=== PATIENT | female | born 1930 | race Caucasian/White ===

== ENCOUNTER 2016-05-04 12:50 | Emergency (ER) | payer MEDICARE ==
[2016-05-04] VITALS (7 sets, daily range): BP systolic 101–129; BP diastolic 29–57; PULSE 69–85; RESP 12–22; O2SAT 99–100
[~2016-05-04] VITALS: Ht 165.1 cm; Wt 70.0 kg
[~2016-05-04 12:50] MED LIST: ACET-171 PO; ASPI-973 PO; ATEN50TA PO; HYDR-4003 PO; HYOS0.1216 SL; LOSA100T29 PO; OMEP20CA11 PO; PROP300T PO; SIMV20TA4 PO; WARF2.5T82 PO
--- NOTE | 2016-05-04 14:00 | ED.REPORT ---
HPI-Abd Pain F 40 and Over Date of Service May 04, 2016 ED Provider: Jonelle Coleman History of Present Illness: 86-year-old female here for nausea and vomiting 1 week. She is also severely dizzy with changing positions almost to the point of passing out. She went to an urgent care yesterday had blood work done for the same complait and a hip and thigh x-ray for left leg pain x 2-3 days but no results yet. Leg Pain only when moving or walking, no pain when sitting. NO hip or back pain. THe pain is occasionally on her R leg as well. She took zofran for nausea but not helping much. She had a fever on day 1 of her illness but not since then. She is not able to keep much liquids or food down. She is on warfarin for A. fib. Last checked INR 2 weeks ago, slightly elevated but no dose adjustments. No recent trauma. she did take all her meds today. She noted her blood pressure this morning was 90 systolic. Denies chest pain, shortness of breath, visual symptoms. She did have one day of diarrhea. Denies blood in her stool or emesis. Denies abd pain. Denies flank pain or dysuria. Nursing Notes Stated Complaint: NAUSEA,DIZZY Chief Complaint: General Complaint Allergies: Coded Allergies: No Known Allergies (Unverified , 05/04/16) Scheduled Aspirin (Aspirin) 81 Mg Tablet 81 MG PO DAILY Atenolol (Atenolol) 50 Mg Tablet 50 MG PO DAILY Cephalexin (Keflex) 500 Mg Capsule 500 MG PO TID Losartan Potassium (Losartan Potassium) 100 Mg Tablet 50 MG PO DAILY Omeprazole (Omeprazole) 20 Mg Capsule.dr 20 MG PO DAILY Propafenone (Propafenone) 300 Mg Tablet 300 MG PO Q8 Simvastatin (Simvastatin) 20 Mg Tablet 20 MG PO HS Warfarin Sodium (Warfarin Sodium) 2.5 Mg Tablet 2.5 MG PO DAILY Scheduled PRN Acetaminophen (Acetaminophen) 500 Mg Tablet 1,000 MG PO Q6H PRN PRN pain headache Hydrocodone-Acetaminophen 5-325 mg (Hydrocodone-Acetaminophen 5-325 mg) 1 Each Tablet 1 EACH PO Q4 PRN PRN For Pain Hyoscyamine (Hyoscyamine) 0.125 Mg Tablet 0.125 MG SL q4h PRN PRN swallowing General Time Seen by MD: 13:59 Chief Complaint Diarrhea mild, Nausea, Vomiting moderate, Other (dizziness ) dizzy with position changes. Hx Obtained From: Patient Arrived By: Walk-in Sudden in Onset?: Yes Onset Occurred: 1 week ago Symptom Duration: Waxes and wanes Pertinent Negative: Pt denies other symptoms Recent Healthcare: Recent doctor visit Similar Sx Previous: Yes Risk Factors Risk Notes: hx laryngeal ca, has baseline trouble swallowing Past Medical History Past Medical History Reports: Cancer, Coronary artery disease, GERD, Hypertension Reports: Atrial fibrillation Past Surgical History Reports: Hysterectomy, Tonsillectomy Reports: Pacemaker insertion Smoking History Never Smoker Social History Alcohol Use: "Social" Drug Use: Denies drug use Review of Systems Basic Review of Systems Eyes: Vision NL ENT: Hearing NL Hematologic: No bleeding Neurologic: NL mental status Psychiatric: Normal thought content Constitutional: Reports: Fatigue, Malaise Respiratory: Denies: Dyspnea on exertion, Hemoptysis Cardiovascular: Denies: Chest pain, Dyspnea on exertion, Edema GI: Reports: Diarrhea, Nausea, Vomiting, Denies: Abdominal pain, Melena Female: Denies: Dysuria Musculoskeletal: Denies: Back pain Complete sys rev & neg: except as marked. Physical Exam Vital Signs Vital Signs (First) Date Time Temp Pulse Resp B/P Pulse Ox O2 Delivery O2 Flow Rate FiO2 05/04/16 12:56 36.7 69 16 124/57 99 Room Air Initial VS: Reviewed Head / Eyes: Atraumatic, Normocephalic, PERRL ENT: Mucous membranes moist, No scleral icterus Neck: Supple, Non-tender, Full range of motion Lymphatic: No lymphadenopathy Extremities: Vascular intact, Neuro intact, No swelling, No tenderness Skin: Warm, Dry, No cyanosis Neurologic: Alert, Oriented, Nonfocal Psychiatric: Mood/affect normal, Behavior normal, Normal thought content Respiratory / Chest: Atraumatic, Breath sounds NL, Breath sounds = bilat, No respiratory distress Chest Wall / Ribs: Positive: Implanted cardiac device Cardiovascular: Heart rate NL Heart Rate / Rhythm: Positive: Irreg irregular rhythm afib, chronic Abdomen: Atraumatic, Soft Tenderness/Guarding/Rebound: Positive: Tender RLQ... (Mild), Negative: Tender flank L, Tender flank R guiac neg Interpretation & Diagnostics Lab Results Interpretation Result Diagram: 05/04/16 1435 05/04/16 1435 Test 05/04/16 14:35 05/04/16 17:04 White Blood Count 9.0th/mm3 (3.8-10.1) Red Blood Count 3.30mil/mm3 (3.90-5.20) Hemoglobin 10.0g/dL (12.0-15.6) Hematocrit 30.2% (35.0-46.0) Mean Corpuscular Volume 91.5fL (81-100) Mean Corpuscular Hemoglobin 30.3pg (27.0-35.0) Mean Corpuscular Hemoglobin Concent 33.1% (32.0-37.0) Red Cell Distribution Width 13.5% (12.3-15.4) Platelet Count 191bil/L (150-400) Neutrophils (%) (Auto) 67.9% (40-74) Lymphocytes (%) (Auto) 19.4% (14-46) Monocytes (%) (Auto) 9.9% (4-12) Eosinophils (%) (Auto) 1.9% (0-5) Basophils (%) (Auto) 0.3% (0-3) Prothrombin Time 71.7sec (8.1-12.5) Prothromb Time International Ratio 6.45ratio Sodium Level 135mEq/L (134-144) Potassium Level 4.8mEq/L (3.5-5.2) Chloride Level 98mEq/L (97-108) Carbon Dioxide Level 24mmol/L (18-29) Blood Urea Nitrogen 29mg/dL (8-27) Creatinine 1.33mg/dL (0.57-1.00) Estimat Glomerular Filtration Rate 54mL/min (>59) Glucose Level 109mg/dL (60-99) Lactic Acid Level 1.2mmol/L (0.4-2.0) Calcium Level 8.0mg/dL (8.5-10.1) Magnesium Level 2.0mg/dL (1.6-2.6) Total Bilirubin 0.5mg/dL (0.0-1.2) Aspartate Amino Transf (AST/SGOT) 12U/L (0-50) Alanine Aminotransferase (ALT/SGPT) 13U/L (0-32) Alkaline Phosphatase 48U/L (25-165) Total Protein 6.0g/dL (6.4-8.4) Albumin 3.8g/dL (3.4-5.0) Lipase 37U/L (13-60) Hold Phan Top Tube Received (Received) Urine Color Yellow (YELLOW) Urine Appearance Cloudy (CLEAR,HAZY) Urine pH 6.0 (5.0-8.0) Urine Specific [place] 1.010 (1.003-1.035) Urine Protein Negativemg/dL (NEG,TRACE) Urine Glucose (UA) Negativemg/dL (NEGATIVE) Urine Ketones Negativemg/dL (NEGATIVE) Urine Occult Blood Trace (NEGATIVE) Urine Nitrite Positive (NEGATIVE) Urine Bilirubin Negative (NEGATIVE) Urine Urobilinogen Normalmg/dL (NORMAL) Urine Leukocyte Esterase Large (NEGATIVE) Urine RBC 0-2/hpf (0-2) Urine WBC >50/hpf (0-5) Urine Epithelial Cells Many/hpf (NONE-MOD) Urine Crystals None seen (NONE SEEN) Urine Bacteria Moderate/hpf (NONE-FEW) Urine Hyaline Casts None/lpf (NONE) Urine Granular Casts None seen (NONE SEEN) Urine Waxy Casts None seen (NONE SEEN) Urine Red Blood Cell Casts None seen (NONE SEEN) Urine White Blood Cell Casts None seen (NONE SEEN) Urine Mucus None seen (None Seen) Urine Trichomonas None seen (NONE SEEN) Urine Yeast None (NONE SEEN) Urinalysis Comment None Urine Culture Reflexed Indicated Re-Eval/Medical Decision Med Decision/Clinical Course 1529- discussed case with Dr. najera. We will aggressively rehydrate, no evidence of GI bleed, see if we can get symptoms under control. Rechecked on patient she is resting comfortably in bed slightly hypotensive at 95/45. Patient improved after second liter of fluid, still slightly dizzy with walking. BP improved. will give third liter of normal saline After third liter of normal saline patient is much improved no longer orthostatic and is asymptomatic. Her lung sounds were clear. i Gave her a gram or Rocephin. Dr. Najera assessed patient as well and agrees with discharge. She will follow up with her GI for scope. And follow-up with her PCP in the next 1-2 days Discharge & Departure Shift Change Sign-Out Patient Care Transferred: No Discussed Complaint(s): Yes Laboratory Evaluation: Lab evaluation discussed Imaging Studies: Imaging discussed Response to Therapy: Improved Primary Impression: UTI (urinary tract infection) Urinary tract infection type: acute cystitis Hematuria presence: with hematuria Qualified Code: N30.01 - Acute cystitis with hematuria Additional Impressions: Afib Atrial fibrillation type: chronic Qualified Code: I48.2 - Chronic atrial fibrillation Nausea & vomiting Vomiting type: unspecified Vomiting Intractability: non-intractable Qualified Code: R11.2 - Nausea with vomiting, unspecified Elevated INR Disposition: Home Discharge Condition All VS Reviewed: Yes Condition: Stable Patient Instructions: Acute Nausea and Vomiting (ED), Urinary Tract Infection in Women (ED) Additional Instructions: Take your antibiotics as prescribed starting tomorrow. Use nausea medicine that you have as needed. Drink lots of fluids, and small frequent sips. Return immediately if you not able to keep fluids or your medications down, fevers, or dizziness returns, you get short of breath or chest pain, or worsening in condition at all. Follow-up with your PCP in the next 1-2 days. Do not take your warfarin for the next 2 days and see your PCP to get your INR rechecked at that time. Referrals: Mc Morin MD (PCP) EDSupervising Provider for APC: Tariq Najera DO copies to: Tariq Najera DO; Mc Morin MD, Linnea K ARNP May 04, 2016 14:00
[2016-05-04] MEDS ORDERED: Ondansetron 2 mg/mL 2 mL Inj IVPUSH ONE (14:10)
[2016-05-04] MEDS ORDERED: 0.9% Sodium Chloride 1,000 ML IV ONE ×3 (14:10→16:25)
[2016-05-04 14:47] LABS: BASOPHILS % (AUTO) 0.3 % (0-3); EOSINOPHILS % (AUTO) 1.9 % (0-5); MONOCYTES % (AUTO) 9.9 % (4-12); Mean Corpuscular Hemoglobin 30.3 pg (27.0-35.0); Mean Corpuscular Volume 91.5 fL (81-100); NEUTROPHILS % (AUTO) 67.9 % (40-74); Platelet Count 191 bil/L (150-400)
--- NOTE | 2016-05-04 15:15 | DRSVH ---
PROCEDURE: X-RAY CHEST ONE VIEW ([id number]) INDICATIONS: 86 year-old female with dizziness. TECHNIQUE: One view of the chest was acquired. COMPARISON: [facility], CR, XR CHEST 1VW (PORTABLE), 03/24/2015, 16:30. [facility], CR, XR CHEST 2VW, 11/10/2014, 16:03. [facility], CR, XR CHEST 2VW, 11/04/2014, 8 :10. FINDINGS: Surgical changes and devices: Left chest wall dual chamber pacemaker is again noted. Lungs and pleura: No pleural effusions or pneumothorax. Lungs are clear. Mediastinum: Mediastinal contours appear normal. Heart size is normal. There is aortic atheroscler osis. Bones and chest wall: No suspicious bony lesions. Overlying soft tissues appear unremarkable. IMPRESSION: No acute cardiopulmonary disease. Dictated by: Suman Dean M.D. on 05/04/2016 at 15:13 Approved by: Suman Dean M.D. on 05/04/2016 at 15:14
[2016-05-04 15:19] LABS: INR 6.45 ratio
[2016-05-04 17:20] LABS: APPEARANCE,URINE CLOUDY (CLEAR,HAZY); COLOR,URINE YELLOW (YELLOW); OCCULT BLOOD,URINE TRACE (NEGATIVE); UROBILINOGEN,URINE NORMAL (NORMAL)
[2016-05-04] MEDS ORDERED: cefTRIAXone Inj 1,000 MG in Dextrose 5% Minibag Plus 50 ML IV ONE (17:40)
[2016-05-04] MEDS ORDERED: CEPH-512 PO (17:47)
== END 2016-05-04 18:33 | disposition home or self-care (01) ==
LOC: SED 12:50
DX: N30.01 Acute cystitis with hematuria (principal); I48.2 Chronic atrial fibrillation; R11.2 Nausea with vomiting, unspecified; R79.1 Abnormal coagulation profile; B96.20 Unspecified Escherichia coli [E. coli] as the cause of diseases classified elsewhere; M79.605 Pain in left leg; I25.10 Atherosclerotic heart disease of native coronary artery without angina pectoris; K21.9 Gastro-esophageal reflux disease without esophagitis; I10 Essential (primary) hypertension; Z95.0 Presence of cardiac pacemaker; Z85.21 Personal history of malignant neoplasm of larynx; Z79.01 Long term (current) use of anticoagulants; Z79.82 Long term (current) use of aspirin
CPT/HCPCS: 36415; 71010; 80053; 81000; 83605; 83690; 83735; 85025; 85610; 87086; 87088; 87186; 93005; 96361; 96365; 96375; 99285; J0696; J2405; J7030

== ENCOUNTER 2016-05-06 12:44 | Observation (INO) | payer MEDICARE ==
[~2016-05-06] VITALS: Ht 165.1 cm; Wt 71.8 kg
[~2016-05-06 12:44] MED LIST changes: +CEPH-512 PO
[2016-05-06 12:54] VITALS: BP 143/57; PULSE 70; RESP 16; O2SAT 97
[2016-05-06] MEDS ORDERED: 0.9% Sodium Chloride 1,000 ML IV ONE (13:04)
--- NOTE | 2016-05-06 13:04 | ED.REPORT ---
HPI-General Illness Date of Service May 06, 2016 ED Provider: Antonio Gomez MD The patient is an 86 year old female with history of atrial fibrillation, coronary artery disease, hypertension, and GERD, who was sent to the emergency department by her primary care provider. She was seen by her doctor on Thursday, urgent care on Thursday, and the emergency department on Thursday. She came to the emergency department for nausea and vomiting. Since yesterday she has noticed bruising to her left lower extremity. She denies any known injuries or trauma. Her INR was elevated on Thursday and she has subsequently not taken her Warfarin for 3 days. At this time she also feels generally weak, dizzy, tired, and short of breath. She denies chest pain, fever, chills, headache, numbness, tingling, weakness, abdominal pain, hematemesis, bloody stool or melena. Nursing Notes Stated Complaint: ANEMIA Chief Complaint: General Complaint Nursing Notes Reviewed: Yes Allergies: Coded Allergies: No Known Allergies (Unverified , 05/04/16) Scheduled Aspirin (Aspirin) 81 Mg Tablet 81 MG PO DAILY Atenolol (Atenolol) 50 Mg Tablet 50 MG PO DAILY Cephalexin (Keflex) 500 Mg Capsule 500 MG PO TID Losartan Potassium (Losartan Potassium) 100 Mg Tablet 50 MG PO DAILY Omeprazole (Omeprazole) 20 Mg Capsule.dr 20 MG PO DAILY Propafenone (Propafenone) 300 Mg Tablet 300 MG PO Q8 Simvastatin (Simvastatin) 20 Mg Tablet 20 MG PO HS Warfarin Sodium (Warfarin Sodium) 2.5 Mg Tablet 2.5 MG PO DAILY Scheduled PRN Acetaminophen (Acetaminophen) 500 Mg Tablet 1,000 MG PO Q6H PRN PRN pain headache Hydrocodone-Acetaminophen 5-325 mg (Hydrocodone-Acetaminophen 5-325 mg) 1 Each Tablet 1 EACH PO Q4 PRN PRN For Pain Hyoscyamine (Hyoscyamine) 0.125 Mg Tablet 0.125 MG SL q4h PRN PRN swallowing General Time Seen by : 13:03 Chief Complaint Other (LLE bruising) Hx Obtained From: Patient, Primary care provider Arrived By: Wheelchair Sudden in Onset?: Yes Onset Occurred: Yesterday Symptom Duration: Since onset Location: : Leg left Quality: Painful Severity: Current: Mild Severity: Maximum: Mild Recent Healthcare: No recent hospitalization, Recent doctor visit Similar Sx Previous: No Past Medical History Past Medical History Reports: Cancer, Coronary artery disease, GERD, Hypertension Reports: Atrial fibrillation Past Surgical History Reports: Hysterectomy, Tonsillectomy Reports: Pacemaker insertion Family History Noncontributory Smoking History Never Smoker Social History Alcohol Use: "Social" Drug Use: Denies drug use Other Social History: Good social support Ambulatory Status Independent Review of Systems Full Review of Systems Constitutional: Reports: Fatigue, Weakness - generalized Respiratory: Reports: Dyspnea on exertion, Shortness of breath Cardiovascular: Denies: Chest pain GI: Denies: Abdominal pain, Bloody/tarry stool, Hematemesis, Hematochezia, Melena Musculoskeletal: Reports: Extremity pain Hematologic: Reports Bruising Neurologic: Reports: Lightheaded, Weakness, Denies: Focal weakness, Headache, Numbness, Problem walking Complete sys rev & neg: except as marked. Physical Exam Vital Signs Vital Signs Date Time Temp Pulse Resp B/P Pulse Ox O2 Delivery O2 Flow Rate FiO2 05/06/16 15:25 36.7 73 17 143/43 100 Room Air 05/06/16 12:54 36.4 70 16 143/57 97 Room Air Initial VS: Reviewed Head / Eyes: Atraumatic, Normocephalic, PERRL ENT: Mucous membranes moist, Conjunctiva normal, No scleral icterus Neck: Supple, Non-tender, Full range of motion Respiratory: Breath sounds normal, Clear to auscultation, No respiratory distress Cardiovascular: Regular rate & rhythm, Heart sounds normal, Intact distal pulses Abdomen / GI: Soft, Non-tender, No guarding, No rebound, No distention Lymphatic: No lymphadenopathy Neurologic: Alert, Oriented, Nonfocal Psychiatric: Mood/affect normal, Behavior normal, Normal thought content General/Constitutional: Awake, Alert, Well appearing Lower Extremity / Pelvis / MS: Neurologic intact, Vascular intact Ecchymosis of the medial aspect of her left leg extending from her groin distally to just below the knee. Neurovascularly intact. No evidence of compartment syndrome. Interpretation & Diagnostics Lab Results Interpretation Result Diagram: 05/06/16 1330 05/06/16 1330 Test 05/06/16 13:30 05/06/16 14:23 White Blood Count 7.9th/mm3 (3.8-10.1) Red Blood Count 2.93mil/mm3 (3.90-5.20) Hemoglobin 8.8g/dL (12.0-15.6) Hematocrit 27.3% (35.0-46.0) Mean Corpuscular Volume 93.2fL (81-100) Mean Corpuscular Hemoglobin 30.0pg (27.0-35.0) Mean Corpuscular Hemoglobin Concent 32.2% (32.0-37.0) Red Cell Distribution Width 13.7% (12.3-15.4) Platelet Count 199bil/L (150-400) Neutrophils (%) (Auto) 65.5% (40-74) Lymphocytes (%) (Auto) 20.3% (14-46) Monocytes (%) (Auto) 10.8% (4-12) Eosinophils (%) (Auto) 2.3% (0-5) Basophils (%) (Auto) 0.3% (0-3) Prothrombin Time 30.7sec (8.1-12.5) Prothromb Time International Ratio 2.81ratio Sodium Level 137mEq/L (134-144) Potassium Level 4.5mEq/L (3.5-5.2) Chloride Level 105mEq/L (97-108) Carbon Dioxide Level 21mmol/L (18-29) Blood Urea Nitrogen 17mg/dL (8-27) Creatinine 0.87mg/dL (0.57-1.00) Estimat Glomerular Filtration Rate 88mL/min (>59) Glucose Level 106mg/dL (60-99) Calcium Level 7.1mg/dL (8.5-10.1) Magnesium Level 1.9mg/dL (1.6-2.6) Total Bilirubin 0.7mg/dL (0.0-1.2) Aspartate Amino Transf (AST/SGOT) 16U/L (0-50) Alanine Aminotransferase (ALT/SGPT) 13U/L (0-32) Alkaline Phosphatase 44U/L (25-165) Total Protein 5.5g/dL (6.4-8.4) Albumin 3.3g/dL (3.4-5.0) Hold Phan Top Tube Received (Received) Hold Urine Received (Received) ECG Interpretation ECG Interpretation: Atrial paced rhythm at 70 bpm Normal axis No ST segment changes Diffuse T wave flattening and inversions No prior EKG available for comparison Time: 13:30 Interpreted by: ED physician Re-Eval/Medical Decision Med Decision/Clinical Course In summary, the patient is an 86-year-old female recently seen in the emergency department 3 days ago for complaints of nausea and vomiting which time she was found to have a supratherapeutic INR >6, she is subsequently been holding her Coumadin though he has noticed increasing generalized fatigue and over the last 48 hours has had significant ecchymosis of her left lower extremity. She was seen by her primary care physician Dr. Najera earlier today and sent to the emergency department for further evaluation due to concern for significant ongoing blood loss. She has had no trauma of her left leg. The emergency department she is afebrile stable vital signs. Examination of her left lower extremity reveals significant ecchymosis with moderate swelling though there is no evidence of compartment syndrome. She has had no signs or symptoms of GI bleeding or other potential sources of blood loss. IV access was obtained and IV fluids were administered. LABS: no leukocytosis, hct 27.3 down from 30.2 two days ago and sig decreased from reg baseline in the 40s, CMP unremarkable except mild hypocalcemia, INR 2.18 down from 6.45 2 days ago At this time, the patient's INR has dropped to therapeutic range. She continues to have decreasing hematocrit and I suspect that at least some of her blood loss is been due to the hematoma formation in her leg. I see no evidence of arterial bleeding or compartment syndrome. I do not feel that imaging studies of her leg will be of much benefit at this time and I suspect that this is slow venous bleeding related to her supratherapeutic INR. He said she is quite anemic and has dropped her blood counts substantially. I feel that she warrants admission for serial hematocrit, ongoing monitoring of her left lower extremity and blood transfusion if needed. Patient was discussed with admitting hospitalist and transferred for further management. Source of Hx: Old records Time of Eval: 14:05 Re-Evaluation/Progress Note: Rechecked the patient. Discussed results, diagnosis, and plan for admission. All questions were addressed. Consultation : Referral / Consult Name: Manju Galindo MD Consulted With: Hospitalist Requested Call at: 14:15 Call Returned at: 14:32 Fur Tinter: Will see patient, Agrees with eval, Agrees with plan, Accepts admit Counseled Regarding: Diagnosis, Lab results, Need for admission Discharge & Departure Primary Impression: Ecchymosis Additional Impressions: Blood loss anemia Supratherapeutic INR Anticoagulated on Coumadin Fatigue Fatigue type: unspecified Qualified Code: R53.83 - Other fatigue Generalized weakness Disposition: ADMITTED TO HOSPITAL Discharge Condition All VS Reviewed: Yes Condition: Stable Referrals: Mc Morin MD (PCP) [facility] Attestation Portions of this note were transcribed by Ember Ibanez. I, Dr. Gomez personally performed the history, physical exam and medical decision-making; I reviewed and confirmed the accuracy of the information in the transcribed note. Signed by: Nahun Tinsley, 05/06/2016 and 1500. copies to: Mc Morin MD, Beck O MD May 06, 2016 13:04 Ember Ibanez May 06, 2016 14:08
[2016-05-06 13:49] LABS: BASOPHILS % (AUTO) 0.3 % (0-3); EOSINOPHILS % (AUTO) 2.3 % (0-5); MONOCYTES % (AUTO) 10.8 % (4-12); Mean Corpuscular Volume 93.2 fL (81-100); NEUTROPHILS % (AUTO) 65.5 % (40-74); Platelet Count 199 bil/L (150-400)
[2016-05-06 13:59] LABS: INR 2.81 ratio
[2016-05-06 14:06] LABS: Magnesium 1.9 mg/dL (1.6-2.6)
[2016-05-06] MEDS ORDERED: Alum-Mag Hydrox-Simeth 30 mL Suspension PO PRN (14:15)
[2016-05-06] MEDS ORDERED: Ondansetron 2 mg/mL 2 mL Inj IVPUSH PRN ×2 (14:15→15:15)
[2016-05-06] MEDS ORDERED: Polyethylene Glycol (PEG) 17 Gm Powder PO PRN (15:15)
[2016-05-06 15:25] VITALS: BP 143/43; PULSE 73; RESP 17; O2SAT 100
[2016-05-06] MEDS: Sodium Chloride LOK Flush 10 mL Syringe IVFLUSH SCH (16:30)
[2016-05-06 16:55] VITALS: BP 103/42; PULSE 76; RESP 12; O2SAT 98
--- NOTE | 2016-05-06 16:57 | PCM.HPMED ---
Subjective Date of Service May 06, 2016 Primary Provider: Admitting Physician: Manju Galindo MD Primary Care Physician: Mc Morin MD Attending Physician: Manju Galindo MD Admit Status: From the Emergency Department, 23-Hour Observation Chief Complaint: Large contusion on left inner thigh History of Present Illness: This is an 86-year-old female who presented to the emergency room with increased contusion on her left side. She notes that recently she had an INR of 7.0 and today in the emergency room her INR is 2.4. She is on Coumadin for atrial fibrillation chronic.per ER doctor originally hematocrit was 40 and is now down to 30. Denies any alteration in bowel movements denies any nausea or vomiting. She does not recall having any injury to her leg. However she does note about 2 weeks ago she did have an injection into her left knee. She notes the contusion about a day ago. She denies any fevers or chills. She does admit to some lightheadedness. But does admit to feeling generally weak. She denies any chest pain. Review of Systems: All other review of systems are reviewed and are negative except for as in history of present illness Allergies Coded Allergies: No Known Allergies (Unverified , 05/04/16) Home Medications Scheduled Aspirin (Aspirin) 81 Mg Tablet 81 MG PO DAILY Atenolol (Atenolol) 50 Mg Tablet 50 MG PO DAILY Cephalexin (Keflex) 500 Mg Capsule 500 MG PO TID Losartan Potassium (Losartan Potassium) 100 Mg Tablet 50 MG PO DAILY Omeprazole (Omeprazole) 20 Mg Capsule.dr 20 MG PO DAILY Propafenone (Propafenone) 300 Mg Tablet 300 MG PO Q8 Simvastatin (Simvastatin) 20 Mg Tablet 20 MG PO HS Warfarin Sodium (Warfarin Sodium) 2.5 Mg Tablet 2.5 MG PO DAILY Scheduled PRN Acetaminophen (Acetaminophen) 500 Mg Tablet 1,000 MG PO Q6H PRN PRN pain headache Hydrocodone-Acetaminophen 5-325 mg (Hydrocodone-Acetaminophen 5-325 mg) 1 Each Tablet 1 EACH PO Q4 PRN PRN For Pain Hyoscyamine (Hyoscyamine) 0.125 Mg Tablet 0.125 MG SL q4h PRN PRN swallowing PMH Past Medical History Reports: Cancer, Coronary artery disease, GERD, Hypertension Reports: Atrial fibrillation Past Surgical History Reports: Hysterectomy, Tonsillectomy Reports: Pacemaker insertion Family History Denies any history of coagulopathies. Social History Hx Alcohol Use: Yes ("very rarely") Hx Substance Use: No Hx Tobacco Use: No Smoking Status: Never Smoker Living Arrangement: Alone Exam Vital Signs Vital Sign - Last Date Time Temp Pulse Resp B/P Pulse Ox O2 Delivery O2 Flow Rate FiO2 05/06/16 15:25 36.7 73 17 143/43 100 Room Air Exam Constitutional: Elderly woman in no acute distress Head: Normocephalic atraumatic Neck: No adenopathy Chest: Clear to auscultation Cor: Irregular regular rate and rhythm S1-S2 abdomen: Soft nontender bowel sounds present Extremities: Large inner aspect left thigh contusion hematoma noted. No pedal edema noted bilaterally Skin: As above otherwise no rashes Psych: Mood and affect are appropriate Neuro: Alert and oriented 3 motor and sensory are intact bilaterally Lab and Diagnostics Labs Laboratory Tests 72 Hours Test 05/06/16 13:30 05/06/16 14:23 White Blood Count 7.9th/mm3 (3.8-10.1) Red Blood Count 2.93mil/mm3 (3.90-5.20) Hemoglobin 8.8g/dL (12.0-15.6) Hematocrit 27.3% (35.0-46.0) Mean Corpuscular Volume 93.2fL (81-100) Mean Corpuscular Hemoglobin 30.0pg (27.0-35.0) Mean Corpuscular Hemoglobin Concent 32.2% (32.0-37.0) Red Cell Distribution Width 13.7% (12.3-15.4) Platelet Count 199bil/L (150-400) Neutrophils (%) (Auto) 65.5% (40-74) Lymphocytes (%) (Auto) 20.3% (14-46) Monocytes (%) (Auto) 10.8% (4-12) Eosinophils (%) (Auto) 2.3% (0-5) Basophils (%) (Auto) 0.3% (0-3) Prothrombin Time 30.7sec (8.1-12.5) Prothromb Time International Ratio 2.81ratio Sodium Level 137mEq/L (134-144) Potassium Level 4.5mEq/L (3.5-5.2) Chloride Level 105mEq/L (97-108) Carbon Dioxide Level 21mmol/L (18-29) Blood Urea Nitrogen 17mg/dL (8-27) Creatinine 0.87mg/dL (0.57-1.00) Estimat Glomerular Filtration Rate 88mL/min (>59) Glucose Level 106mg/dL (60-99) Calcium Level 7.1mg/dL (8.5-10.1) Magnesium Level 1.9mg/dL (1.6-2.6) Total Bilirubin 0.7mg/dL (0.0-1.2) Aspartate Amino Transf (AST/SGOT) 16U/L (0-50) Alanine Aminotransferase (ALT/SGPT) 13U/L (0-32) Alkaline Phosphatase 44U/L (25-165) Total Protein 5.5g/dL (6.4-8.4) Albumin 3.3g/dL (3.4-5.0) Hold Phan Top Tube Received (Received) Hold Urine Received (Received) Result Diagram: 05/06/16 1330 05/06/16 1330 Assessment & Plan # Left thigh hematoma/contusion, acute, present on admission Possibly related to recent use any injection or trauma she is aware of Her INR is now 2.4 improved we will go ahead and monitor placed in observation status Check hematocrit in a.m. # Atrial fibrillation, chronic, present on admission INR now 2.4 continue to monitor # DVT prophylaxis Patient is on therapeutic Coumadin # CODE STATUS patient is full code Resuscitation Status: CPR: Attempt Resuscitation Time spent 60 minutes Manju Galindo MD May 06, 2016 16:57
[2016-05-06] MEDS ORDERED: ATEN50TA PO (17:26)
[2016-05-06] MEDS ORDERED: LOSA50TA37 PO (17:26)
--- NOTE | 2016-05-06 17:36 | NUR ---
Admit Pt admitted at 1630. Report given to charger. Stable and in no distress. Daughter at bedside. Oriented to room and call light. Discussed fall precautions. Addendum: 05/06/16 at 1900 by LESIA HASSAN RN CMS intact to LLE
[2016-05-06] MEDS ORDERED: WARF2.5T82 PO ×2 (18:02)
[2016-05-06] MEDS ORDERED: SUCR1ORA2 PO (18:02)
[2016-05-06] MEDS ORDERED: PANT40TA3 PO (18:07)
[2016-05-06] MEDS ORDERED: GABA-502 PO (18:11)
[2016-05-06 20:30] LABS: APPEARANCE,URINE TURBID (CLEAR,HAZY); COLOR,URINE STRAW (YELLOW); OCCULT BLOOD,URINE SMALL (NEGATIVE); PH,URINE 5.5 (5.0-8.0); UROBILINOGEN,URINE NORMAL (NORMAL)
[2016-05-06] MEDS: Alum-Mag Hydrox-Simeth 30 mL Suspension PO PRN (20:36)
--- NOTE | 2016-05-06 20:51 | NUR ---
Abd cramping C/o abd cramping gave miralax initially afterward continue to have cramping but small frequent formed BM gave maalox which had better effect
[2016-05-06 21:00] VITALS: BP 156/75; PULSE 78; RESP 19; O2SAT 97
[2016-05-07] MEDS: Sodium Chloride LOK Flush 10 mL Syringe IVFLUSH SCH ×3 (00:30→16:59)
[2016-05-07 00:59] VITALS: BP 144/55; PULSE 68; RESP 18; O2SAT 98
[2016-05-07 05:02] VITALS: BP 122/50; PULSE 54; RESP 17; O2SAT 97
[2016-05-07 05:39] LABS: BASOPHILS % (AUTO) 0.5 % (0-3); MONOCYTES % (AUTO) 11.4 % (4-12); Mean Corpuscular Hemoglobin 29.9 pg (27.0-35.0); Mean Corpuscular Volume 92.8 fL (81-100); NEUTROPHILS % (AUTO) 58.5 % (40-74); Platelet Count 176 bil/L (150-400)
[2016-05-07 06:15] LABS: INR 2.05 ratio
[2016-05-07 07:45] VITALS: BP 133/57; PULSE 70; RESP 14; O2SAT 97
--- NOTE | 2016-05-07 10:02 | NUR ---
Evaluation completed. Please go to "Notes" then click on "Assessments and Notes" (bottom left corner of screen). Then select appropriate discipline tab on top of screen.
--- NOTE | 2016-05-07 11:08 | NUR ---
POC MD ward paged at 11:00 to determine plan of care for pt. Pt stating she is feeling improved from yesterday and denies dizziness/vertigo. Seen by speech this am. states he will see pt in about an hour, aware that home meds have not been reordered. Addendum: 05/07/16 at 1233 by LESIA HASSAN RN POC at this time is to monitor. to re-order labs for tomorrow am. Pt has no complaints of pain/dizziness or otherwise at this time.
--- NOTE | 2016-05-07 11:30 | NUR ---
VTE states pt does not currently require any ordered VTE prophylaxis as her INR today is therapeutic at 2.92. Encouraged pt to move in bed and encouraged OOB activity. Addendum: 05/07/16 at 1600 by LESIA HASSAN RN correction, INR 2.05 05/07/16
--- NOTE | 2016-05-07 12:27 | NUR ---
Social Work: Initial Assessment / Readiness for d/c Data: Pt is an 86 y/o female admitted for left leg ecchymosis, blood loss anemia. Pt's PCP is Dr Morin, pt's insurance is Medicare with [employer] sup. Readmit score not listed. EMR reviewed, pt discussed in rounds. MD states pt likely to d/c in 1-2 days. CREW LEADER met with pt at bedside, role explained. Pt states that she lives alone [address] in a single story home where she uses no DME. Pt states her daughter is her DPOA, CREW LEADER requested copy for hospital. Pt states she has history with HH, none with SNF, no LTC or VA benefits, pt is not a caregiver. CREW LEADER offered HH services to pt, she declined these. Pt states she has a ride home with her neighbor. No further d/c planning needs anticipated at this time. CREW LEADER will continue to follow if needs arise. Assessment: Pt who is independent at baseline. Plan: Pt will d/c home via POV with neighbor when medically stable, likely in 1-2 days. No further d/c planning needs anticipated at this time. CREW LEADER will continue to follow if needs arise. ANGELINA Wong Addendum: 05/07/16 at 1235 by CINDY HE Amended: Links added.
[2016-05-07 13:15] VITALS: BP 138/63; PULSE 70; RESP 16; O2SAT 97
--- NOTE | 2016-05-07 13:57 | NUR ---
Activity 1350 Pt up OOB ambulating in halls w/o mobility device. Able to ambultae >250ft. Tolerated well.
--- NOTE | 2016-05-07 14:47 | PCM.PNMED ---
Subjective Date of Service May 07, 2016 Subjective denies any new issues/complaints. feels left leg swelling a bit worse today Exam Vital Signs Vital Sign - Last Date Time Temp Pulse Resp B/P Pulse Ox O2 Delivery O2 Flow Rate FiO2 05/07/16 13:15 70 16 138/63 97 Room Air 05/07/16 07:45 36.7 Intake and Output 05/06/16 05/06/16 05/07/16 Cumulative From/Thru 15:00 23:00 07:00 05/06/16 12:54 - 05/07/16 06:29 Intake Total 150 ml 807 ml 957 ml Balance 150 ml 807 ml 957 ml Intake Oral 807 ml 807 ml IV Total 150 ml 150 ml # Voids 1 1 2 # Bowel Movements 1 1 Exam Constitutional: Elderly woman in no acute distress Head: Normocephalic atraumatic Neck: Supple with Full ROM Chest: Clear to auscultation bilat CV: Irregular irregular rate and rhythm S1-S2 Abdomen: Soft, nontender, bowel sounds present Extremities: Large inner aspect left thigh contusion hematoma noted. No pedal edema noted bilaterally Skin: As above otherwise no rashes Psych: Mood and affect are appropriate Neuro: Alert and oriented 3 motor and sensory are intact bilaterally IVs and Medications Medications Reviewed: Medications were reviewed in detail Lab and Diagnostics Result Diagram: 05/07/1652205/07/16522 Assessment & Plan 86-year-old female who presented to the emergency room with increased contusion on her left thigh. She is on Coumadin for atrial fibrillation chronic. per ER doctor originally hematocrit was 40 and is now down to 30. Denies any alteration in bowel movements denies any nausea or vomiting. She does not recall having any injury to her leg. She notes the contusion about a day prior to presentation. # Acute Left thigh hematoma/contusion while on anticoagulation with Coumadin, present on admission. ongoing - Continue to hold Coumadin - INR dropping without further intervention - f/u INR - f/u h/h - f/u physical exam. no clinical evidence of compartment syndrome at this time # Atrial fibrillation, chronic. rate controlled - resume home meds and hold Coumadin - f/u on Tele # DVT prophylaxis - Patient is on therapeutic Coumadin Dispo: 1-2 days pending stable h/h and reversed INR Resuscitation Status: CPR: Attempt Resuscitation Time spent 30 min Vinh Terrell May 07, 2016 14:47
[2016-05-07] MEDS ORDERED: HYDROcodone-APAP 5-325 mg Tablet PO PRN (14:50)
--- NOTE | 2016-05-07 15:52 | NUR ---
Antibiotics 1550 Clarified ordered keflex with . would like pt to receive oral antibiotics. No changes to current orders.
[2016-05-07 16:30] VITALS: BP 145/72; PULSE 69; RESP 18; O2SAT 95
[2016-05-07] MEDS: Sucralfate 100 mg/mL 10 mL Suspension PO SCH ×2 (17:00→21:12)
[2016-05-07 19:59] VITALS: BP 125/45; PULSE 70; RESP 18; O2SAT 98
[2016-05-07] MEDS: Alum-Mag Hydrox-Simeth 30 mL Suspension PO PRN (20:48)
--- NOTE | 2016-05-07 21:21 | NUR ---
Heart Burn No cramping described tonight but heartburn w/loose stool maalox given w/effect Addendum: 05/08/16 at 0522 by TRES ALONSO RN Did not have any further stooling!
[2016-05-08 00:42] VITALS: BP 123/57; PULSE 72; RESP 17; O2SAT 96
[2016-05-08] MEDS: Sodium Chloride LOK Flush 10 mL Syringe IVFLUSH SCH ×2 (00:45→08:45)
[2016-05-08 05:12] VITALS: BP 137/52; PULSE 69; RESP 18; O2SAT 96
[2016-05-08 06:09] LABS: Mean Corpuscular Hemoglobin 29.9 pg (27.0-35.0); Mean Corpuscular Volume 93.1 fL (81-100)
[2016-05-08 06:35] LABS: INR 1.41 ratio
[2016-05-08] MEDS: Sucralfate 100 mg/mL 10 mL Suspension PO SCH ×3 (06:42→16:14)
[2016-05-08 07:50] VITALS: BP 126/51; PULSE 70; RESP 20; O2SAT 95
[2016-05-08] MEDS ORDERED: Pantoprazole 40 mg ER24 Tablet PO SCH (08:30)
--- NOTE | 2016-05-08 11:04 | PCM.DIMED ---
Discharge Instructions Date of Service May 08, 2016 Dates of Hospitalization May 06, 2016 at 15:49 Discharge Diagnosis Discharge Diagnosis # Acute Left thigh hematoma/ecchymosis while on anticoagulation with Coumadin, present on admission. ongoing # Therapeutic INR while on Coumadin, present on admission. Reversed. # Atrial fibrillation, chronic. rate controlled # Recent E. Coli UTI. Treated with antibiotics and urine culture now with evidence of yeast but otherwise asymptomatic. Medication Instructions Stop taking Warfarin (Coumadin) and followup with primary care provider to determine when to resume this medication Diet Low fat, Low Sodium, Heart Healthy Activity No restrictions Call your provider Fever or Chills, Shortness of breath, Bleeding, Excessive diarrhea, Other ( worsening leg pain, swelling, or tightening of the left lower extremity) Patient Instructions Seek immediate medical attention if any new or worsening signs or symptoms occur. Follow-up plan 1. Followup with primary care provider (Dr. Njaera) on Thursday05/12/16 at 4:05 PM 2. Followup with your data processor as previously planned Follow-up Provider: Tariq Najera Masoud May 08, 2016 11:04
--- NOTE | 2016-05-08 12:46 | NUR ---
Social Work Discharge: Order for discharge acknowledged. SW met with patient at bedside to discuss discharge plan. Patient resides home alone in [place]. SW discussed discharge options for HHC upon discharge. Patient denied need for HHC at this time. Patient states daughter to transport her home upon discharge. No other anticipated discharge needs at this time. SW to follow. PLAN: Home alone with daughter whom to transport at discharge. No other anticipated needs. Patient denied need for HHC. SW to follow as needs arise. Biju ALFARO
--- NOTE | 2016-05-08 16:32 | NUR ---
Discharge Reviewed DC instructions with patient and DIL. answered all questions All belongings taken. Taken out in w/ch to home in private auto with family.
--- NOTE | 2016-05-08 19:44 | PCM.DC.MED ---
Discharge Summary Date of Service May 08, 2016 Dates of Hospitalization Date of Hospital Admission May 06, 2016 at 15:49 Date of Discharge: May 08, 2016 Providers: Admitting Physician: Manju Galindo MD Primary Care Physician: Mc Morin MD Attending Physician: Manju Galindo MD Diagnosis at Time of Discharge Diagnosis at Time of Discharge # Acute Left thigh hematoma/ecchymosis while on anticoagulation with Coumadin, present on admission. ongoing # Therapeutic INR while on Coumadin, present on admission. Reversed. # Atrial fibrillation, chronic. rate controlled # Recent E. Coli UTI. Treated with antibiotics and urine culture now with evidence of yeast but otherwise asymptomatic. Brief History As noted in H&P by Dr. Galindo: This is an 86-year-old female who presented to the emergency room with increased contusion on her left side. She notes that recently she had an INR of 7.0 and today in the emergency room her INR is 2.4. She is on Coumadin for atrial fibrillation chronic.per ER doctor originally hematocrit was 40 and is now down to 30. Denies any alteration in bowel movements denies any nausea or vomiting. She does not recall having any injury to her leg. However she does note about 2 weeks ago she did have an injection into her left knee. She notes the contusion about a day ago. She denies any fevers or chills. She does admit to some lightheadedness. But does admit to feeling generally weak. She denies any chest pain. Hospital Course # Acute Left thigh hematoma/contusion while on anticoagulation with Coumadin, present on admission. ongoing - Continue to hold Coumadin - INR dropped to sub-therapeutic range - hematoma and h/h remaining stable - thigh and lower extremity remain soft to touch with full ROM - further f/u w/ PCP in coming days recommended # Atrial fibrillation, chronic. rate controlled - resume home meds and hold Coumadin - f/u with PCP # UTI present prior to admission. - Urine culture grew yeast during this hospital. pt otherwise asymptomatic. per discussion with ID no further treatment indicated at this time. by day of d/c lungs CTA bilat Exam Vital Signs (Last) Date Time Temp Pulse Resp B/P Pulse Ox O2 Delivery O2 Flow Rate FiO2 05/08/16 07:50 36.8 70 20 126/51 95 Room Air Test 2/7/17 13:30 05/06/16 14:23 05/06/16 14:43 05/07/16 05:23 Magnesium Level 1.9mg/dL (1.6-2.6) Hold Phan Top Tube Received (Received) Hold Urine Received (Received) Urine Color Straw (YELLOW) Urine Appearance Turbid (CLEAR,HAZY) Urine pH 5.5 (5.0-8.0) Urine Specific [place] 1.025 (1.003-1.035) Urine Protein Negativemg/dL (NEG,TRACE) Urine Glucose (UA) Negativemg/dL (NEGATIVE) Urine Ketones Negativemg/dL (NEGATIVE) Urine Occult Blood Small (NEGATIVE) Urine Nitrite Negative (NEGATIVE) Urine Bilirubin Negative (NEGATIVE) Urine Urobilinogen Normalmg/dL (NORMAL) Urine Leukocyte Esterase Large (NEGATIVE) Urine RBC 3-10/hpf (0-2) Urine WBC 11-50/hpf (0-5) Urine Epithelial Cells Moderate/hpf (NONE-MOD) Urine Crystals None seen (NONE SEEN) Urine Bacteria Moderate/hpf (NONE-FEW) Urine Hyaline Casts None/lpf (NONE) Urine Granular Casts None seen (NONE SEEN) Urine Waxy Casts None seen (NONE SEEN) Urine Red Blood Cell Casts None seen (NONE SEEN) Urine White Blood Cell Casts None seen (NONE SEEN) Urine Mucus None seen (None Seen) Urine Trichomonas None seen (NONE SEEN) Urine Yeast None (NONE SEEN) Urinalysis Comment None Urine Culture Reflexed Indicated Neutrophils (%) (Auto) 58.5% (40-74) Lymphocytes (%) (Auto) 25.8% (14-46) Monocytes (%) (Auto) 11.4% (4-12) Eosinophils (%) (Auto) 3.0% (0-5) Basophils (%) (Auto) 0.5% (0-3) Sodium Level 139mEq/L (134-144) Potassium Level 4.1mEq/L (3.5-5.2) Chloride Level 107mEq/L (97-108) Carbon Dioxide Level 21mmol/L (18-29) Blood Urea Nitrogen 12mg/dL (8-27) Creatinine 0.71mg/dL (0.57-1.00) Estimat Glomerular Filtration Rate 112mL/min (>59) Glucose Level 99mg/dL (60-99) Calcium Level 6.9mg/dL (8.5-10.1) Total Bilirubin 0.6mg/dL (0.0-1.2) Aspartate Amino Transf (AST/SGOT) 13U/L (0-50) Alanine Aminotransferase (ALT/SGPT) 10U/L (0-32) Alkaline Phosphatase 39U/L (25-165) Total Protein 4.4g/dL (6.4-8.4) Albumin 2.9g/dL (3.4-5.0) Test 05/08/16 05:42 White Blood Count 6.6th/mm3 (3.8-10.1) Red Blood Count 2.74mil/mm3 (3.90-5.20) Hemoglobin 8.2g/dL (12.0-15.6) Hematocrit 25.5% (35.0-46.0) Mean Corpuscular Volume 93.1fL (81-100) Mean Corpuscular Hemoglobin 29.9pg (27.0-35.0) Mean Corpuscular Hemoglobin Concent 32.2% (32.0-37.0) Red Cell Distribution Width 14.1% (12.3-15.4) Platelet Count 206bil/L (150-400) Prothrombin Time 15.2sec (8.1-12.5) Prothromb Time International Ratio 1.41ratio Discharge Medications Discharge Medications Aspirin (Aspirin) 81 Mg Tablet 81 MG PO DAILY (Reported) Atenolol (Atenolol) 50 Mg Tablet 50 MG PO BID (Reported) Losartan Potassium (Losartan Potassium) 50 Mg Tablet 50 MG PO BID (Reported) Pantoprazole DR (Pantoprazole DR) 40 Mg Tablet.dr 40 MG PO DAILY (Reported) Propafenone (Propafenone) 300 Mg Tablet 300 MG PO Q8 (Reported) Simvastatin (Simvastatin) 20 Mg Tablet 20 MG PO HS (Reported) Sucralfate Susp (Carafate Susp) 1 Gm/10 Ml Oral.susp 1 GM PO QID (Reported) As needed Acetaminophen (Acetaminophen) 500 Mg Tablet 1,000 MG PO Q6H PRN PRN pain headache (Reported) Gabapentin (Gabapentin) 300 Mg Capsule 300 MG PO HS PRN PRN back pain (Reported ) Hydrocodone-Acetaminophen 5-325 mg (Hydrocodone-Acetaminophen 5-325 mg) 1 Each Tablet 1 EACH PO DAILY PRN PRN For Pain (Reported) Additional med instructions Stop taking Warfarin (Coumadin) and followup with primary care provider to determine when to resume this medication Followup Plan Disposition: Home Follow-up plan 1. Followup with primary care provider (Dr. Najera) on Thursday05/12/16 at 4:05 PM 2. Followup with your quarry extraction worker as previously planned Discharge Diet: Low fat, Low Sodium, Heart Healthy Discharge Activity: No restrictions Patient Instructions Seek immediate medical attention if any new or worsening signs or symptoms occur. Follow-up Provider: Tariq Najera DO Time spent 35 min copies to: Tariq Najera Masoud May 08, 2016 19:43
== END 2016-05-08 16:25 | disposition home or self-care (01) ==
LOC: SED 12:44 → MOC 15:49
PROVIDERS: ADMIT Specialist; ATTEND Specialist
DX: S70.12XA Contusion of left thigh, initial encounter (principal); R58 Hemorrhage, not elsewhere classified; R79.1 Abnormal coagulation profile; I48.2 Chronic atrial fibrillation; D64.9 Anemia, unspecified; R53.83 Other fatigue; I25.10 Atherosclerotic heart disease of native coronary artery without angina pectoris; I10 Essential (primary) hypertension; K21.9 Gastro-esophageal reflux disease without esophagitis; Z79.82 Long term (current) use of aspirin; Z95.0 Presence of cardiac pacemaker; Z79.4 Long term (current) use of insulin; Z87.440 Personal history of urinary (tract) infections
CPT/HCPCS: 36415; 80053; 81000; 83735; 85025; 85027; 85610; 86850; 87086; 87088; 92610; 93005; 99285; G0378; G8996; G8997; G8998; J7030

== ENCOUNTER 2016-07-31 15:40 | Emergency (ER) | payer MEDICARE ==
[~2016-07-31] VITALS: Ht 165.1 cm; Wt 70.0 kg
[~2016-07-31 15:40] MED LIST changes: -CEPH-512 PO; +GABA-502 PO; -HYOS0.1216 SL; -LOSA100T29 PO; +LOSA50TA37 PO; -OMEP20CA11 PO; +PANT40TA3 PO; +SUCR1ORA2 PO; -WARF2.5T82 PO
[2016-07-31 15:46] VITALS: BP 132/82; PULSE 95; RESP 16; O2SAT 95
[2016-07-31 16:38] LABS: BASOPHILS % (AUTO) 0.6 % (0-3); EOSINOPHILS % (AUTO) 2.3 % (0-5); MONOCYTES % (AUTO) 8.1 % (4-12); Mean Corpuscular Hemoglobin 29.8 pg (27.0-35.0); Mean Corpuscular Volume 90.2 fL (81-100); NEUTROPHILS % (AUTO) 62.3 % (40-74); Platelet Count 221 bil/L (150-400)
[2016-07-31 16:53] LABS: INR 2.94 ratio
[2016-07-31 17:08] LABS: TROPONIN T < 0.010 ug/L (0.0-0.011)
[2016-07-31 17:10] LABS: Magnesium 2.1 mg/dL (1.6-2.6)
--- NOTE | 2016-07-31 17:32 | ED.REPORT ---
HPI-General Illness Date of Service July 31, 2016 ED Provider: Antonio Gomez MD Pt is an 86 year old female with a history of A-fib s/p pacemaker, CAD, hypertension, GERD presents to the ED with dizziness that began 1 week ago. Associated symptoms include diarrhea, fatigue, decreased appetite, decreased fluid intake, generalized weakness and general malaise. She has had no vertiginous symptoms or lateralizing numbness, tingling or weakness. Patient saw Dr. Parker today and was in A-fib during the evaluation, the patient has a history of anemia and was sent to the emergency department for concern that she may have worsening anemia. She currently takes Coumadin. Similar symptoms have been present intermittently for the past 5 months intermittently. Patient has had a cardioversion in the past. Patient also reports occasional episodes of SOB associated with exertion though this has been present for years and is not new. She denies vomiting, fever, rash, hematochezia, melena, headache, hematuria , dysuria or chest pain. She states that she goes in and out of atrial fibrillation at baseline and that it is not uncommon for her to be in A. fib versus a paced rhythm. Nursing Notes Stated Complaint: WEAK, DIZZY X 1 WEEK Chief Complaint: Neuro Symptoms/ Deficits Nursing Notes Reviewed: Yes Allergies: Coded Allergies: No Known Allergies (Unverified , 07/31/16) Scheduled Aspirin (Aspirin) 81 Mg Tablet 81 MG PO DAILY Atenolol (Atenolol) 50 Mg Tablet 50 MG PO BID Losartan Potassium (Losartan Potassium) 50 Mg Tablet 50 MG PO BID Pantoprazole DR (Pantoprazole DR) 40 Mg Tablet.dr 40 MG PO DAILY Propafenone (Propafenone) 300 Mg Tablet 300 MG PO Q8 Simvastatin (Simvastatin) 20 Mg Tablet 20 MG PO HS Sucralfate Susp (Carafate Susp) 1 Gm/10 Ml Oral.susp 1 GM PO QID Scheduled PRN Acetaminophen (Acetaminophen) 500 Mg Tablet 1,000 MG PO Q6H PRN PRN pain headache Gabapentin (Gabapentin) 300 Mg Capsule 300 MG PO HS PRN PRN back pain Hydrocodone-Acetaminophen 5-325 mg (Hydrocodone-Acetaminophen 5-325 mg) 1 Each Tablet 1 EACH PO DAILY PRN PRN For Pain General Time Seen by MD: 17:12 Chief Complaint Weakness Hx Obtained From: Patient Arrived By: Ambulance Sudden in Onset?: No Onset Occurred: 1 week ago Symptom Duration: Since onset Associated with: Reports: Difficulty breathing, Dizziness, Weakness Additional Notes: Diarrhea Fatigue Pertinent Negative: Pt denies other symptoms Recent Healthcare: No recent doctor visit, No recent hospitalization Past Medical History Past Medical History Reports: Cancer, Coronary artery disease, GERD, Hypertension Reports: Atrial fibrillation Past Surgical History Reports: Hysterectomy, Tonsillectomy Reports: Pacemaker insertion Family History Noncontributory Smoking History Never Smoker Social History Alcohol Use: "Social" Drug Use: Denies drug use Other Social History: Good social support, Local resident Ambulatory Status Independent Review of Systems Decreased appetite Decreased fluid intake Full Review of Systems Constitutional: Reports: Fatigue, Malaise, Weakness - generalized, Denies: Chills, Fever Respiratory: Reports: Shortness of breath Cardiovascular: Denies: Chest pain GI: Reports: Diarrhea, Denies: Hematochezia, Melena, Vomiting Female: Denies: Dysuria, Hematuria Neurologic: Reports: Dizziness, Shaking, Weakness, Denies: Headache Complete sys rev & neg: except as marked. Physical Exam Vital Signs Vital Signs Date Time Temp Pulse Resp B/P Pulse Ox O2 Delivery O2 Flow Rate FiO2 07/31/16 19:44 135/41 127/57 131/41 07/31/16 18:15 83 144/76 Room Air 07/31/16 15:46 36.0 95 16 132/82 95 Room Air Initial VS: Reviewed Neck: Supple, Non-tender, Full range of motion Skin: Warm, Dry, No cyanosis Neurologic: Alert, Oriented, Nonfocal Psychiatric: Mood/affect normal, Behavior normal, Normal thought content General/Constitutional: Awake, Alert, No acute distress GENERAL: Speaking in full sentences Head / Eyes: Atraumatic (Face and Scalp atruamatic), Normocephalic, PERRL ENT: Atraumatic, Airway patent Mouth: Positive: Mucous membranes dry Respiratory / Chest: Atraumatic, Breath sounds NL, Breath sounds = bilat, No respiratory distress Cardiovascular: Heart rate NL, Heart sounds NL, No gallop, No murmurs, No rubs , Peripheral circulation NL (Good distal pulses), Pulses = bilaterally Heart Rate / Rhythm: Positive: Irregular rhythm Abdomen: Atraumatic, Soft, Non-tender, No distention Upper Extremities Upper Extremity / MS: Atraumatic, Inspection NL, Neurologic intact, Vascular intact, No edema Lower Extremity / Pelvis / MS: Atraumatic, Inspection NL, Neurologic intact, Vascular intact (Well perfused), No edema LOWER EXTREMITIES: No calf swelling or tenderness Neurologic: Oriented X3, Speech NL, No motor deficits, No sensory deficits, CN II - XII intact, Reflexes equal bilat Interpretation & Diagnostics Lab Results Interpretation Result Diagram: 07/31/16 1625 07/31/16 1625 Test 07/31/16 16:25 White Blood Count 6.2th/mm3 (3.8-10.1) Red Blood Count 4.49mil/mm3 (3.90-5.20) Hemoglobin 13.4g/dL (12.0-15.6) Hematocrit 40.5% (35.0-46.0) Mean Corpuscular Volume 90.2fL (81-100) Mean Corpuscular Hemoglobin 29.8pg (27.0-35.0) Mean Corpuscular Hemoglobin Concent 33.1% (32.0-37.0) Red Cell Distribution Width 13.4% (12.3-15.4) Platelet Count 221bil/L (150-400) Neutrophils (%) (Auto) 62.3% (40-74) Lymphocytes (%) (Auto) 26.5% (14-46) Monocytes (%) (Auto) 8.1% (4-12) Eosinophils (%) (Auto) 2.3% (0-5) Basophils (%) (Auto) 0.6% (0-3) Prothrombin Time 32.2sec (8.1-12.5) Prothromb Time International Ratio 2.94ratio Sodium Level 137mEq/L (134-144) Potassium Level 4.6mEq/L (3.5-5.2) Chloride Level 99mEq/L (97-108) Carbon Dioxide Level 23mmol/L (18-29) Blood Urea Nitrogen 24mg/dL (8-27) Creatinine 0.91mg/dL (0.57-1.00) Estimat Glomerular Filtration Rate 84mL/min (>59) Glucose Level 106mg/dL (60-99) Calcium Level 9.1mg/dL (8.5-10.1) Magnesium Level 2.1mg/dL (1.6-2.6) Total Bilirubin 0.2mg/dL (0.0-1.2) Aspartate Amino Transf (AST/SGOT) 14U/L (0-50) Alanine Aminotransferase (ALT/SGPT) 13U/L (0-32) Alkaline Phosphatase 56U/L (25-165) Troponin T < 0.010ug/L (0.0-0.011) Total Protein 6.7g/dL (6.4-8.4) Albumin 4.3g/dL (3.4-5.0) Hold Phan Top Tube Received (Received) ECG Interpretation ECG Interpretation: EKG A- fib Rate 92 bpm Prolonged QT No ST seg elevation prior 05/06/16 New a-fib No ventricular paced rhythm Leads are now upright anteriorly Time: 18:07 Interpreted by: ED physician Re-Eval/Medical Decision Med Decision/Clinical Course Pt is an 86 year old female with a history of A-fib s/p pacemaker, CAD, hypertension, GERD presents to the ED with dizziness that began 1 week ago. Associated symptoms include diarrhea, fatigue, decreased appetite, decreased fluid intake, generalized weakness and general malaise. She has had no vertiginous symptoms or lateralizing numbness, tingling or weakness. Patient saw Dr. Parker today and was in A-fib during the evaluation, the patient has a history of anemia and was sent to the emergency department for concern that she may have worsening anemia. She currently takes Coumadin. Similar symptoms have been present intermittently for the past 5 months intermittently. Patient has had a cardioversion in the past. Patient also reports occasional episodes of SOB associated with exertion though this has been present for years and is not new. She denies vomiting, fever, rash, hematochezia, melena, headache, hematuria , dysuria or chest pain. She states that she goes in and out of atrial fibrillation at baseline and that it is not uncommon for her to be in A. fib versus a paced rhythm. Here in the emergency department the patient is symptomatically orthostatic though otherwise afebrile with stable vital signs and in no apparent distress. The patient was treated with the below medications 2 L normal saline Zofran 4 mg IV LABS INR 2.94 Hct within norm limits 40.5 (dramatically improved from prior) CMP unremarkable Troponin negative Kidney Function Good No electrolyte abnormalities EKG A- fib Rate 92 bpm Prolonged QT No ST seg elevation prior 05/06/16 New a-fib No ventricular paced rhythm Leads are now upright anteriorly Contacted on-call nurse consultant and discussed patient's reason for being sent to the emergency room. Further conversation the patient was sent here solely due to concern for anemia. There is no concern about her atrial fibrillation as she is rate controlled, therapeutic on Coumadin. She was observed here on telemetry and demonstrated no arrhythmias other than atrial fibrillation and she remained with good rate control. She reported feeling improved after receiving 2 L of normal saline. Thereafter, orthostatic vital signs were negative. She was able to ambulate independently. She has no history suggestive of active GI bleed. I feel that she is appropriate for discharge home. Of note, the patient is accompanied by her daughter who seems quite frustrated about her mother's ongoing vague symptoms. I had a long conversation with the patient as well as her daughter. The patient states that she feels better and would like to go home her daughter states that the symptoms have been intermittent for 5 months and she would want and answer. I explained that at this moment I see no immediately concerning causes of her symptoms and I have recommended that they return should her symptoms return or worsen and otherwise follow-up with her primary care doctor. The patient is quite happy with this plan and wants to be discharged though the patient's daughter remains somewhat unhappy. The patient was discharged in good condition. Prior to discharge follow-up and return precautions were reviewed in detail with the patient who verbalized understanding and agreement with the plan. The patient was discharged in stable condition. Time of Eval: 19:41 Patient Status: Condition improved Re-Evaluation/Progress Note: She is assigned a road test and agrees with the plan. Her symptoms are present but improved. Daughter is expressing concern about discharge. Questions about medication are addressed. Consultation : Referral / Consult Name: Elena Shelley MD Consulted With: Cardiology Call Returned at: 18:23 [place]: Agrees with eval, Agrees with plan Note: Dr. Parker sent to the pt to the ED for possible anemia and fatigue. No cardioversion or further work up from a cardiac standpoint is warrented. Counseled Regarding: Diagnosis, Lab results, Need for follow-up, When/why to return to ED Discharge & Departure Primary Impression: Lightheadedness Additional Impressions: Dehydration Atrial fibrillation Atrial fibrillation type: unspecified Qualified Code: I48.91 - Unspecified atrial fibrillation History of anemia Disposition: Home Discharge Condition All VS Reviewed: Yes Condition: Improved Patient Instructions: Dehydration (ED) Additional Instructions: Thank you for seeking care at the emergency room. It is difficult for us to make definitive diagnoses in the ED but we believe that you are experiencing dehydration. Our primary goal today in the ED was to evaluate you for any life-threatening conditions. Your evaluation was reassuring. You should follow-up with your primary doctor in the next week. You should return to the ED immediately if you develop fevers, vomiting, cough, shortness of breath, chest pain, lightheadedness, weakness or any other concerning signs or symptoms. Thank you for letting us partake in your care today. Referrals: Tariq Najera DO (PCP) Scribe Attestation Portions of this note were transcribed by Kal Nagy. I, Dr. Gomez personally performed the history, physical exam and medical decision-making; I reviewed and confirmed the accuracy of the information in the transcribed note. Signed by: Nahun Peguero, 07/31/161949. copies to: Tariq Najera DO; Lencho Parker MD, Beck O MD July 31, 2016 17:32 KAL NAGY July 31, 2016 17:37
[2016-07-31] MEDS ORDERED: Ondansetron 2 mg/mL 2 mL Inj IVPUSH ONE (17:35)
[2016-07-31] MEDS ORDERED: 0.9% Sodium Chloride 1,000 ML IV ONE (17:35)
[2016-07-31] MEDS ORDERED: 0.9% Sodium Chloride 1,000 ML IV SCH (18:10)
[2016-07-31 18:15] VITALS: BP 144/76; PULSE 83
[2016-07-31 19:44] VITALS: BP_SYST 127; BP_SYST 131; BP_SYST 135; BP_DIAS 41; BP_DIAS 57
[2016-07-31 20:23] VITALS: BP 127/57; PULSE 95; RESP 21; O2SAT 98
== END 2016-07-31 20:24 | disposition home or self-care (01) ==
LOC: SED 15:40
DX: R42 Dizziness and giddiness (principal); E86.0 Dehydration; I48.91 Unspecified atrial fibrillation; D64.9 Anemia, unspecified; I10 Essential (primary) hypertension; I25.10 Atherosclerotic heart disease of native coronary artery without angina pectoris; K21.9 Gastro-esophageal reflux disease without esophagitis; Z95.0 Presence of cardiac pacemaker; Z79.01 Long term (current) use of anticoagulants; Z79.82 Long term (current) use of aspirin
CPT/HCPCS: 36415; 80053; 83735; 84484; 85025; 85610; 93005; 96360; 96361; 99285; J7030